=== PATIENT | female | born 1945 | race Hispanic/Latino ===

== ENCOUNTER 2016-06-17 20:50 | Emergency (ER) | payer MEDICARE ==
--- NOTE | 2016-06-17 23:12 | Emergency Department Report ---
History of Present Illness - General Chief Complaint: Overdose Stated Complaint: SUICIDAL Time Seen by Provider: 06/17/16 22:33 Source: patient, EMS Mode of arrival: Stretcher Limitations: Physical Limitation - History of Present Illness Initial Comments: 70-year-old female presents to the emergency department after an overdose of Xanax. Patient states that she took too many Xanax. She states she does not know how many tablets she took. She also states she does not know what time she took the medication. Patient states she was not trying to kill herself. Additional information from the family at bedside shows that the patient has been off of her psychiatric medication for an unknown time. She has been having angry outbursts at home. She has threatened to kill her . Family has removed all sharp objects from the house. There is no access to guns. Family states the patient told them she took the medication in an attempt to kill herself. There are no other complaints. MD Complaint: intentional overdose -: unknown Intent: unwilling to say How Overdose Was Discovered: called family/friend Associated Symptoms: depression Treatments Prior to Arrival: none - Related Data Allergies Allergy/AdvReac Type Severity Reaction Status Date / Time clarithromycin [From Biaxin] Allergy Hives Verified 06/17/16 22:25 ED Review of Systems ROS: Stated complaint: SUICIDAL Other details as noted in HPI Comment: All other systems reviewed and negative Psychiatric: as per HPI, suicidal thoughts ED Past Medical Hx - Past Medical History Previous Medical History?: Yes Hx Psychiatric Treatment: Yes (Anxiety; Depression) - Surgical History Past Surgical History?: Yes Hx Cholecystectomy: Yes - Family History Family history: no significant - Social History Smoking Status: Never Smoker Substance Use Type: Prescribed ED Physical Exam - General Limitations: Physical Limitation General appearance: alert, in no apparent distress - Head Head exam: Present: atraumatic, normocephalic - Eye Eye exam: Present: normal appearance, PERRL, EOMI - ENT ENT exam: Present: normal exam, normal orophraynx, mucous membranes moist - Neck Neck exam: Present: normal inspection, full ROM. Absent: tenderness - Respiratory Respiratory exam: Present: normal lung sounds bilaterally. Absent: respiratory distress - Cardiovascular Cardiovascular Exam: Present: regular rate, normal rhythm, normal heart sounds - GI/Abdominal GI/Abdominal exam: Present: soft, normal bowel sounds. Absent: distended, tenderness - Extremities Exam Extremities exam: Present: normal inspection, full ROM. Absent: tenderness - Back Exam Back exam: Present: normal inspection, full ROM. Absent: tenderness - Neurological Exam Neurological exam: Present: alert, oriented X3. Absent: motor sensory deficit - Psychiatric Psychiatric exam: Present: normal affect, anxious - Skin Skin exam: Present: warm, dry, intact ED Course Vital Signs 06/17/16 06/17/16 06/17/16 22:25 23:07 23:09 Temperature 97.7 F Pulse Rate 77 85 Respiratory 16 17 17 Rate Blood Pressure 141/80 123/71 [Left] O2 Sat by Pulse 100 100 100 Oximetry 06/18/16 00:40 Temperature 98.4 F Pulse Rate 76 Respiratory 12 Rate Blood Pressure 123/78 [Left] O2 Sat by Pulse 99 Oximetry - Reevaluation(s) Reevaluation #1: 06/17/16 23:11 Patient appears well clinically. Form 1013 has been signed and placed on the patient's chart. Patient will require medical clearance prior to mental health evaluation. Reevaluation #2: 06/18/16 01:50 Patient has been observed in the emergency department with no signs of decompensation. Lab results reviewed. Patient has been medically cleared. Patient is currently awaiting evaluation and inpatient placement. ED Medical Decision Making - Lab Data Result diagrams: 06/17/16 23:04 06/17/16 23:04 - Differential Diagnosis intentional overdose, suicidal ideation, suicidal gesture Critical care attestation.: If time is entered above; I have spent that time in minutes in the direct care of this critically ill patient, excluding procedure time. ED Disposition Clinical Impression: Suicidal ideation Depression Qualifiers: Depression Type: major depressive disorder Major depression recurrence: recurrent Active/Remission status: currently active Major depression episode severity: severe Psychotic features: without psychotic features Qualified Code(s ): F33.2 - Major depressive disorder, recurrent severe without psychotic features Intentional benzodiazepine overdose Qualifiers: Encounter type: initial encounter Qualified Code(s): T42.4X2A - Poisoning by benzodiazepines, intentional self-harm, initial encounter Disposition: DC/TX PSY HOSP/PSY UNIT Is pt being admited?: No Condition: Stable Time of Disposition: 01:51
[2016-06-17 23:18] LABS: Basophils % (Auto) 1.4 % (0.0-1.8); Eosinophils % (Auto) 2.3 % (0.0-4.3); Hematocrit 42.5 % (30.3-42.9); Hemoglobin 14.6 gm/dl (10.1-14.3); Mean Corpuscular HGB Conc 34 % (30-34); Mean Corpuscular Hemoglobin 31 pg (28-32); Mean Corpuscular Volume 91 fl (79-97); Platelet Count 182 K/mm3 (140-440); Red Blood Count 4.69 M/mm3 (3.65-5.03); Red Cell Distribution Width 14.9 % (13.2-15.2); White Blood Count 5.5 K/mm3 (4.5-11.0)
[2016-06-17 23:38] LABS: Anion Gap 17 mmol/L; BUN/Creatinine Ratio 13.33; Blood Urea Nitrogen 8 mg/dL (7-17); Calcium 9.5 mg/dL (8.4-10.2); Carbon Dioxide 23 mmol/L (22-30); Glucose 82 mg/dL (65-100); Sodium 142 mmol/L (137-145)
[2016-06-18 01:07] LABS: Urine Drugs of Abuse Note Disclamer
[2016-06-18 01:26] LABS: Bilirubin,Urine NEG (Negative); Blood,Urine NEG (Negative); Ketones,Urine NEG (Negative); Leukocyte Esterase,Urine LG (Negative); Nitrite,Urine NEG (Negative); Protein,Urine <15 mg/dL mg/dL (Negative); Urobilinogen,Urine < 2.0 mg/dL (<2.0)
[2016-06-18 14:16] VITALS: BP 136/64
== END 2016-06-18 14:21 ==
LOC: ED 20:50
DX: T42.4X2A Poisoning by benzodiazepines, intentional self-harm, initial encounter (principal); F33.2 Major depressive disorder, recurrent severe without psychotic features; R45.851 Suicidal ideations; F41.9 Anxiety disorder, unspecified; Z88.1 Allergy status to other antibiotic agents; Y92.89 Other specified places as the place of occurrence of the external cause
CPT/HCPCS: 36415; 80048; 80307; 81001; 85025; 99285; G0480; 80320